=== PATIENT | female | born 2000 | race Caucasian/White ===

== ENCOUNTER 2024-02-25 11:55 | Outpatient (CLI) | payer BC, SELFPAY ==
--- NOTE | ~2024-02-25 | XR_ITS ---
EXAMINATION: XR cervical spine 4-5V DATE: 02/25/2024 12:12 INDICATION: Bilateral hand tingling and numbness. TECHNIQUE: 4 views of cervical spine were obtained. COMPARISON: None. FINDINGS: Bone alignment is normal. Vertebral body heights and intervertebral disc heights are normal . The facet joints are normal. No central canal stenosis or prevertebral soft tissue swelling. IMPRESSION: 1. Normal cervical spine. Reviewed, dictated and finalized at location A. IMPRESSION: 1. Normal cervical spine.
== END 2024-02-25 11:56 ==
PROVIDERS: PCP Physician Assistant Medical; Visit Provider Physician Assistant Medical
DX: R20.2 Paresthesia of skin (principal)
CPT/HCPCS: 72050

== ENCOUNTER 2024-04-01 09:29 | Outpatient (CLI) | payer BC, SELFPAY ==
--- NOTE | 2024-04-01 11:15 | NEURO_ITS ---
Impression: # Non-diabetic complains of numbness of hands. # Bilateral ulnar neuropathy across the elbows. # No Carpal Tunnel Syndrome. # Normal needle/EMG exam. Nerve Conduction Studies Anti Sensory Summary Table Stim Site NR Peak (ms) P-T Amp (?V) Site1 Site2 Delta-P (ms) Dist (cm) See (m/s) Left Median Anti Sensory (2-3nd Digit) Wrist 3.0 120.9 Wrist 2-3nd Digit 3.0 14.0 47 Wrist 3.2 153.8 Wrist 2-3nd Digit 3.0 14.0 47 Right Median Anti Sensory (2-3nd Digit) Wrist 2.9 159.9 Wrist 2-3nd Digit 2.9 14.0 48 Wrist 3.0 147.7 Wrist 2-3nd Digit 2.9 14.0 48 Left Radial Anti Sensory (Base 1st Digit) Wrist 2.0 67.5 Wrist Base 1st Digit 2.0 0.0 Right Radial Anti Sensory (Base 1st Digit) Wrist 2.4 50.8 Wrist Base 1st Digit 2.4 0.0 Left Ulnar Anti Sensory (5th Digit) Wrist 3.0 89.8 Wrist 5th Digit 3.0 14.0 47 Right Ulnar Anti Sensory (5th Digit) Wrist 2.7 123.6 Wrist 5th Digit 2.7 14.0 52 Motor Summary Table Stim Site NR Onset (ms) O-P Amp (mV) Site1 Site2 Delta-0 (ms) Dist (cm) See (m/s) Left Median Motor (Abd Poll Brev) Wrist 3.5 4.6 Elbow Wrist 5.1 30.0 59 Elbow 8.6 5.4 Right Median Motor (Abd Poll Brev) Wrist 3.0 8.2 Elbow Wrist 5.0 30.0 60 Elbow 8.0 7.7 Left Ulnar Motor (Abd Dig Minimi) Wrist 2.7 6.6 A Elbow Wrist 6.2 31.0 50 A Elbow 8.9 5.0 B Elbow Wrist 4.2 24.0 57 B Elbow 6.9 5.0 Right Ulnar Motor (Abd Dig Minimi) Wrist 2.8 11.7 A Elbow Wrist 5.5 29.0 53 A Elbow 8.3 11.2 B Elbow Wrist 3.5 22.0 63 B Elbow 6.3 8.4 F Wave Studies NR F-Lat (ms) L-R F-Lat (ms) Left Median (Mrkrs) (Abd Poll Brev) 28.64 0.00 Right Median (Mrkrs) (Abd Poll Brev) 28.64 0.00 Left Ulnar (Mrkrs) (Abd Dig Min) 28.69 0.12 Right Ulnar (Mrkrs) (Abd Dig Min) 28.57 0.12 EMG Side Muscle Nerve Root Ins Act Fibs Amp Dur Recrt Comment Right 1stDorInt Ulnar C8-T1 Nml Nml Nml Nml Nml Right Ext Indicis Radial (Post Int) C7-8 Nml Nml Nml Nml Nml Right Ext Digitorum Radial (Post Int) C7-8 Nml Nml Nml Nml Nml Right BrachioRad Radial C5-6 Nml Nml Nml Nml Nml Right PronatorTeres Median C6-7 Nml Nml Nml Nml Nml Right Abd Poll Brev Median C8-T1 Nml Nml Nml Nml Nml Right ABD Dig Min Ulnar C8-T1 Nml Nml Nml Nml Nml Left 1stDorInt Ulnar C8-T1 Nml Nml Nml Nml Nml Left Ext Indicis Radial (Post Int) C7-8 Nml Nml Nml Nml Nml Left Ext Digitorum Radial (Post Int) C7-8 Nml Nml Nml Nml Nml Left BrachioRad Radial C5-6 Nml Nml Nml Nml Nml Left PronatorTeres Median C6-7 Nml Nml Nml Nml Nml Left Abd Poll Brev Median C8-T1 Nml Nml Nml Nml Nml Left ABD Dig Min Ulnar C8-T1 Nml Nml Nml Nml Nml Right Biceps Musculocut C5-6 Nml Nml Nml Nml Nml Right Triceps Radial C6-7-8 Nml Nml Nml Nml Nml Right Deltoid Axillary C5-6 Nml Nml Nml Nml Nml Left Biceps Musculocut C5-6 Nml Nml Nml Nml Nml Left Triceps Radial C6-7-8 Nml Nml Nml Nml Nml Left Deltoid Axillary C5-6 Nml Nml Nml Nml Nml MTDD
== END 2024-04-01 09:30 | disposition home or self-care (01) ==
PROVIDERS: PCP Physician Assistant Medical; Visit Provider Physician Assistant Medical
DX: R20.2 Paresthesia of skin (principal); G56.23 Lesion of ulnar nerve, bilateral upper limbs
CPT/HCPCS: 95886; 95911

== ENCOUNTER 2024-06-16 10:55 | Emergency (ER) | payer BC, SELFPAY ==
[2024-06-16 11:09] VITALS: BP 97/74; PULSE 115; RESP 16; TEMP 36.8; O2SAT 99
--- NOTE | 2024-06-16 11:21 | ED.GENADULT ---
HPI - General Adult General Chief complaint: Headache Stated complaint: Dehydrated Time Seen by Provider: 06/16/24 11:21 Source: patient Mode of arrival: ambulatory Limitations: no limitations History of Present Illness HPI narrative: Tyra is a 24-year-old female with a history of POTS who presents to the clinic today with complaints of dehydration x2 days, stating she is having a POTS flare. She also reports feeling lethargic x 2 days and has spent most the day in bed, dark urine, urinary burning, and urinary frequency. She increased her fluid intake and has been drinking 8-10 glasses of water a day as well as Body Armors and Gatorade. She denies fevers/chills, shortness of breath, nausea/vomiting, or diarrhea. Related Data Home Medications Medication Instructions Recorded Confirmed norethindrone 1 mg-ethinyl 1 tablet PO DAILY 06/16/24 06/16/24 estradiol 20 mcg (21)-iron 75 mg (7) tablet (12/08 (28)) Allergies Allergy/AdvReac Type Severity Reaction Status Date / Time No Known Allergies Allergy Verified 06/16/24 11:04 Review of Systems Review of Systems: CONSTITUTIONAL: Denies body aches, fever, chills, or sweats. EYES: Denies visual changes, redness, or discharge. ENT: Denies rhinorrhea, congestion, sore throat, or otalgia. CARDIOVASCULAR: Denies chest pain or edema. RESPIRATORY: Denies cough or dyspnea. GASTROINTESTINAL: Denies abdominal pain, nausea, vomiting, or diarrhea. GENITOURINARY: Reports urinary burning and frequency; Denies hematuria. SKIN: Denies rash, itching, or wounds. MUSCULOSKELETAL: Denies back pain, joint pain, or myalgia. NEUROLOGIC: Reports dizziness when standing; Denies headache, numbness, tingling, or weakness. PSYCH: Denies depression or anxiety. All systems reviewed & are unremarkable except as noted in HPI and below PMFSH Past Medical History Medical History POTS (postural orthostatic tachycardia syndrome) Scoliosis Surgical History Surgical History History of spinal fusion for scoliosis 04/07/15-posterior spinal fusion History of wisdom tooth extraction Social History Social History Smoking status: Never smoker Alcohol intake: never Substance use: never Do You Feel Safe in your Home?: Yes Lack of Transportation: No Lack of Food: Never True Current Housing: I Have Housing Concerned About Future Housing: No Difficulty Paying Gas/Electric Bills: No Difficulty Paying for Meds: No Currently Unemployed: No Education: Associate Degree Difficulty w/ Childcare or Family Care: No Living arrangements: with family Occupation/Education: occupation Gender identity (if verbalized by the patient): Female Comments At time of signature, I have reviewed and agree with nursing past medical, surgical, social and family history unless otherwise noted. Please see nursing chart for further information. There is no relevant family history pertinent to the presenting complaint Exam Narrative: GENERAL: Well-appearing, well-nourished, and in no acute distress. EYES: EOMI. No redness or drainage. Conjunctivae normal. ENT: Mucous membranes pink and moist. No rhinorrhea. Throat normal. Uvula midline. NECK: Normal AROM. Supple. CHEST: No respiratory distress. Clear to auscultation. HEART: Tachy and normal rhythm. No murmur appreciated. ABDOMEN: Soft, nontender, nondistended, normal active bowel sounds. No CVA tenderness SKIN: Warm, dry, no rash. Capillary refill normal. Normal skin turgor. NEURO: No focal deficits. Alert and oriented x3. Gait steady. PSYCH: Normal affect. Course Course Emergency Course: Patient is aware of diagnosis, understands and agrees to treatment plan. Anticipatory guidance given. Patient agrees to follow-up as directed and is aware of reason
[2024-06-16 11:41] LABS: EDUAAPPEAR Clear; EDUABILI Negative; EDUABLOOD Trace; EDUACOLOR1 Yellow; EDUAGLUCOSE Negative; EDUAKETONE 1+; EDUALEUKO Negative; EDUANITRATE Negative; EDUAPH 5.5; EDUAPROTEIN 1+; EDUAUROBILI 0.2
== END 2024-06-16 12:03 | disposition home or self-care (01) ==
PROVIDERS: Emergency Provider Nurse Practitioner Family; PCP Physician Assistant Medical
DX: R42 Dizziness and giddiness (principal); G90.A Postural orthostatic tachycardia syndrome [POTS]; M41.9 Scoliosis, unspecified
CPT/HCPCS: 81003; 87086; 87088; 99213; G0463

== ENCOUNTER 2024-06-30 03:18 | Day surgery (SDC) | payer BC, SELFPAY ==
--- NOTE | 2024-06-25 09:40 | SUR.PREOP ---
Report to the Outpatient Waiting Room, entrance under the green pavilion located off [address], at time 1000 on date 06/30/24. Planned Procedure Time: 1200. Time changes happen often and if your time is changed the preop area will call you the afternoon before. - You and your visitor will be asked to self-screen and do not enter if you have any COVID symptoms. - A mask is optional within the hospital at this time. Patients may have clear liquids (water, carbonated beverages, clear teas, apple juice) until 3 hours prior to surgery with a maximum of 20 ounces. - NO CLEAR LIQUIDS AFTER 0900 - No food from midnight until time of surgery - Infants may have breast milk until 4 hours before surgery, formula 6 hours prior to surgery. - Children will be allowed to drink immediately following surgery. If applicable, please bring a bottle or sippy cup to assist with drinking. Juice, water, soda, and popsicles are readily available. For infants on formula, please bring formula the day of surgery. Pacifiers are allowed. Take the following medications with a SIP of water the morning of surgery: N/A DO NOT STOP ANY OF YOUR OTHER PRESCRIPTION MEDICATIONS PRIOR TO SURGERY ?EXCEPT THE FOLLOWING Medications to discontinue per physician N/A Date to take last dose Please no make-up, nail yakut, hairspray, perfume, deodorant, or body powder the day of surgery. No jewelry (including any body piercings) or valuables the day of surgery, leave them at home. Please take a shower or bath the night before, or the morning of, surgery with an antibacterial soap. Wear comfortable, loose fitting clothing. Children are encouraged to wear pajamas. - Jewelry must be removed prior to entering the operating room. Rings and piercings that are not removed may be cut off. - The hospital will not accept responsibility for valuables. - Please leave all valuables, including medications, at home the day of surgery. If you are going home after surgery, a licensed show horse driver must drive you home. - NO public transportation without another adult if you receive anesthesia. - We recommend that an adult stay with you for 24 hours following discharge. - We also recommend that you do not drive, make important decision, drink alcoholic beverages, or take any drugs that were not prescribed by your health care provider for at least 24 hours after your discharge time. For Pediatric surgeries, we recommend two adults accompany the child home. Follow any additional instructions given to you from your surgeon. If you or anyone in your household have experienced Covid symptoms in the past week, please notify your surgeon or the nurse liaison at the phone number below for possible testing. Telephone instructions given to ARELY ZULETA and asked if any additional questions and then verbalized understanding. Patient advised to call surgeon office or pre surgery nurse liaison [phone] if any additional questions.
[2024-06-25 09:50] VITALS: BMI 18.6
[2024-06-30] MEDS: ACETAMINOPHEN 500 MG TABLET 1000 MG PO (10:24)
[2024-06-30] MEDS: LACTATED RINGERS 1,000 ML 30 ML IV CONT ×2 (10:30→13:30)
[2024-06-30 10:46] VITALS: BP 114/61; PULSE 94; RESP 16; TEMP 36.3; O2SAT 100
[2024-06-30] MEDS: KETOROLAC 15 MG/ML VIAL (*BKC) IV PUSH (11:04)
--- NOTE | 2024-06-30 11:11 | P.PNAN_ITS ---
Anes - Initial Pre Proc Eval Procedure: Operation Date: 06/30/24 12:00 Proposed Procedures p Left Elbow Ulnar Nerve Transposition - Yasmany Solano MD Date/Time: 06/30/24 11:11 Surgeon: Yasmany Solano MD Pre Op Diagnosis: Lt Elbow Ulnar Neuropathy Patient Data Age: 24 Gender: F Height: 1.78 m Weight: 58.1 kg Last Vital Signs Temp 97.4 F L 06/30/24 10:46 Pulse 94 06/30/24 10:46 Resp 16 06/30/24 10:46 BP 114/61 06/30/24 10:46 Pulse Ox 100 06/30/24 10:46 O2 Del Method Room Air 06/30/24 10:46 Allergies Allergy/AdvReac Type Severity Reaction Status Date / Time No Known Allergies Allergy Verified 06/30/24 10:12 Home Medications Medication Instructions Recorded Confirmed Type norethindrone 1 mg-ethinyl 1 tablet PO HS 06/16/24 06/30/24 History estradiol 20 mcg (21)-iron 75 mg (7) tablet (Junel FE 12/08 (28)) Patient hx anesthesia problems: none and other (Pt and her mother report low BPs post op secondary to POTS. ) Family hx anesthesia problems: none Results Review: All pre-operative results and documents have been reviewed as part of the pre- operative evaluation. [facility] Past Medical History Medical History POTS (postural orthostatic tachycardia syndrome) Scoliosis Surgical History Surgical History History of spinal fusion for scoliosis 04/07/15-posterior spinal fusion History of wisdom tooth extraction Social History Social History Smoking status: Never smoker Alcohol intake: never Substance use: never Do You Feel Safe in your Home?: Yes Lack of Transportation: No Lack of Food: Never True Current Housing: I Have Housing Concerned About Future Housing: No Difficulty Paying Gas/Electric Bills: No Difficulty Paying for Meds: No Currently Unemployed: No Education: Associate Degree Difficulty w/ Childcare or Family Care: No Living arrangements: with family Occupation/Education: occupation Gender identity (if verbalized by the patient): Female Spiritual care concerns: No Anes - Eval Final PreProcedure Day of Procedure 06/30/24 11:11 Patient weight: normal Heart: regular rate and rhythm Lungs: clear to auscultation Airway: Mallampati scale Neurological: alert and oriented Last oral intake: >/= 8 hours ASA classification: II Emergent: no Anesthetic plan: proceed Anesthesia type and monitoring: general LMA and standard monitoring Results Review: All pre-operative results and documents have been reviewed as part of the pre- operative evaluation. Pt w POTS, typically has lower BPs, danial post anethesia care. Informed Consent: The patient's anesthetic plan and its attendant risks and benefits were discussed with the patient/family/POA. Questions were solicited and answers provided to the satisfaction of the patient/family/POA.
--- NOTE | 2024-06-30 11:54 | WPDHPUPDATE1 ---
History and Physical Update Update Date/Time: 06/30/24 11:54 History and Physical has been reviewed, including an updated exam of the patient. There are NO changes in the patient's condition. Risks, benefits, and alternatives have been discussed and questions answered. Patient agrees to proceed with procedure.
[2024-06-30] MEDS: ceFAZolin 2 GM/D5W 50 ML 2 GM/50 ML BAG IVPB (12:07)
[2024-06-30] MEDS: BUPIVACAINE/EPINEPHRINE 0.5% 10 ML VIAL 20 ML INFILTRATE (12:24)
[2024-06-30 13:30] VITALS: BP 87/46; PULSE 62; RESP 14; O2SAT 100
[2024-06-30 14:00] VITALS: BP 90/79; PULSE 66
--- NOTE | 2024-06-30 14:06 | P.OP_ITS ---
Procedure Note - Detailed Date of Procedure 06/30/24 Pre-op Diagnosis Lt Elbow Ulnar Neuropathy Post-op Diagnosis Same Procedure Performed Left ulnar nerve subcutaneous anterior transposition. 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 Findings Significant displacement of the nerve from the cubital tunnel observed. Anterior transposition was performed. Description of Procedure A general anesthetic was administered. Preoperative antibiotics were given. The arm was prepped and draped in usual sterile fashion with a well-padded tourniquet high on the arm. The limb was exsanguinated and tourniquet inflated to 250 mmHg. The proposed incision was injected with 0.5% Marcaine with epinephrine. A longitudinal incision was created posterior to the medial epicondyle. Careful dissection was brought down to the ulnar nerve. It was identified proximally and dissected to the cubital tunnel retinaculum. Careful dissection released the cubital tunnel retinaculum. The dissection was carried out to the flexor carpi ulnaris. The 1st motor branch was carefully identified and protected. Attention was turned proximally, and the nerve was released proximal to the arcade of [place]. The intermuscular septum was slightly excised at the medial epicondyle. Careful cauterization with bipolar electrocautery was performed. The arm was flexed and the nerve was assessed. At this point the nerve was confirmed to be unstable. It was elected to proceed with a subcutaneous transposition. After adequate release was confirmed pr oximally and distally, the nerve was carefully moved onto the muscle. The course of the nerve was very nice without evidence of compression or instability. A subcutaneous tissue sling was created with 0 Vicryl suture reapproximating the subcutaneous fat layer to the medial epicondyle. The nerve remained stable through full range of motion. The tourniquet was released and meticulous hemostasis was maintained. The subcutaneous tissues were closed with interrupted 3-0 Monocryl suture followed by running 4-0 Monocryl suture and Steri-Strips. Sterile dressing was applied with a soft splint applied. The patient was extubated and brought to the recovery room in stable condition. Estimated Blood Loss 1 Pathology None sent Complications No immediate complications Condition Stable Disposition PACU [facility] Billing Surgery - Charge Forward: Surgery Billing
[2024-06-30 14:30] VITALS: BP 91/58; PULSE 59
[2024-06-30 14:45] VITALS: BP 81/48; PULSE 73
== END 2024-06-30 15:05 | disposition home or self-care (01) ==
PROVIDERS: PCP Physician Assistant Medical; Visit Provider Orthopaedic Surgery
PROC: (CPT 64718; principal; 2024-06-30 12:00)
DX: G56.22 Lesion of ulnar nerve, left upper limb (principal); G90.A Postural orthostatic tachycardia syndrome [POTS]; M41.9 Scoliosis, unspecified; Z98.890 Other specified postprocedural states; Z98.1 Arthrodesis status
CPT/HCPCS: 64718; A4565; A9270; J0690; J1885; J2250; J2704; J3010; J7120

== ENCOUNTER 2024-07-15 02:03 | Day surgery (SDC) | payer BC, SELFPAY ==
[2024-07-08 15:57] VITALS: BMI 19.2
--- NOTE | 2024-07-08 16:02 | SUR.PREOP ---
Report to the Outpatient Waiting Room, entrance under the green pavilion located off [facility], at time 11:30 on date 07/15/2024. Planned Procedure Time: 1:30p.m. Time changes happen often and if your time is changed the preop area will call you the afternoon before. - You and your visitor will be asked to self-screen and do not enter if you have any COVID symptoms. - A mask is optional within the hospital at this time. Patients may have clear liquids (water, carbonated beverages, clear teas, apple juice) until 3 hours prior to surgery with a maximum of 20 ounces. - No food from midnight until time of surgery - Infants may have breast milk until 4 hours before surgery, infant formula 6 hours prior to surgery. - Children will be allowed to drink immediately following surgery. If applicable, please bring a bottle or sippy cup to assist with drinking. Juice, water, soda, and popsicles are readily available. For infants on formula, please bring formula the day of surgery. Pacifiers are allowed. Take the following medications with a SIP of water the morning of surgery: N/A DO NOT STOP ANY OF YOUR OTHER PRESCRIPTION MEDICATIONS PRIOR TO SURGERY ?EXCEPT THE FOLLOWING Medications to discontinue per physician N/A Date to take last dose N/A Please no make-up, nail nepali, hairspray, perfume, deodorant, or body powder the day of surgery. No jewelry (including any body piercings) or valuables the day of surgery, leave them at home. Please take a shower or bath the night before, or the morning of, surgery with an antibacterial soap. Wear comfortable, loose fitting clothing. Children are encouraged to wear pajamas. - Jewelry must be removed prior to entering the operating room. Rings and piercings that are not removed may be cut off. - The hospital will not accept responsibility for valuables. - Please leave all valuables, including medications, at home the day of surgery. If you are going home after surgery, a licensed driver lifter of sanitation truck must drive you home. - NO public transportation without another adult if you receive anesthesia. - We recommend that an adult stay with you for 24 hours following discharge. - We also recommend that you do not drive, make important decision, drink alcoholic beverages, or take any drugs that were not prescribed by your health care provider for at least 24 hours after your discharge time. For Pediatric surgeries, we recommend two adults accompany the child home. Follow any additional instructions given to you from your surgeon. If you or anyone in your household have experienced Covid symptoms in the past week, please notify your surgeon or the nurse liaison at the phone number below for possible testing. Telephone instructions given to Tyra Sanders and asked if any additional questions and then verbalized understanding. Patient advised to call surgeon office or pre surgery nurse liaison [phone] if any additional questions.
[2024-07-15] VITALS (8 sets, daily range): BP systolic 86–105; BP diastolic 55–70; PULSE 62–97; RESP 9–18; TEMP 36.2–36.6; O2SAT 100
--- NOTE | 2024-07-15 09:57 | WPDHPUPDATE1 ---
History and Physical Update Update Date/Time: 07/15/24 09:57 History and Physical has been reviewed, including an updated exam of the patient. There are NO changes in the patient's condition. Risks, benefits, and alternatives have been discussed and questions answered. Patient agrees to proceed with procedure.
[2024-07-15] MEDS: ACETAMINOPHEN 500 MG TABLET 1000 MG PO (12:13)
--- NOTE | 2024-07-15 12:27 | WPDANESEPPF ---
Anes - Initial Pre Proc Eval Procedure: Operation Date: 07/15/24 13:30 Proposed Procedures p Right Ulnar Nerve Transposition - Yasmany Solano MD Date/Time: 07/15/24 12:27 Surgeon: Yasmany Solano MD Pre Op Diagnosis: Rt Elbow Ulnar Neuropathy Patient Data Age: 24 Gender: F Height: 1.75 m Weight: 58.97 kg Allergies Allergy/AdvReac Type Severity Reaction Status Date / Time No Known Allergies Allergy Verified 07/15/24 11:42 Home Medications Medication Instructions Recorded Confirmed Type norethindrone 1 mg-ethinyl 1 tablet PO HS 06/16/24 07/15/24 History estradiol 20 mcg (21)-iron 75 mg (7) tablet (June FE 12/08 (28)) oxycodone-acetaminophen 5 mg-325 1 - 2 tablet PO Q4-6H PRN pain #30 07/15/24 Rx mg tablet tabs Patient hx anesthesia problems: none Family hx anesthesia problems: none Results Review: All pre-operative results and documents have been reviewed as part of the pre-operative evaluation. [facility] Past Medical History Medical History POTS (postural orthostatic tachycardia syndrome) Scoliosis Surgical History Surgical History History of spinal fusion for scoliosis 04/07/15-posterior spinal fusion History of wisdom tooth extraction Social History Social History Smoking status: Never smoker Alcohol intake: never Substance use: never Do You Feel Safe in your Home?: Yes Lack of Transportation: No Lack of Food: Never True Current Housing: I Have Housing Concerned About Future Housing: No Difficulty Paying Gas/Electric Bills: No Difficulty Paying for Meds: No Currently Unemployed: No Education: Associate Degree Difficulty w/ Childcare or Family Care: No Living arrangements: with family Occupation/Education: occupation Gender identity (if verbalized by the patient): Female Spiritual care concerns: No Anes - Eval Final PreProcedure Day of Procedure 07/15/24 12:27 Patient weight: normal and thin Heart: regular rate and rhythm Lungs: clear to auscultation Airway: Mallampati scale class II Neurological: alert and oriented Last oral intake: >/= 8 hours ASA classification: II Emergent: no Anesthetic plan: proceed Anesthesia type and monitoring: general LMA and standard monitoring Results Review: All pre-operative results and documents have been reviewed as part of the pre-operative evaluation. POTS by rosalina. Informed Consent: The patient's anesthetic plan and its attendant risks and benefits were discussed with the patient/family/POA. Questions were solicited and answers provided to the satisfaction of the patient/family/POA.
[2024-07-15] MEDS: LACTATED RINGERS 1,000 ML 30 ML IV CONT ×2 (12:55→14:30)
[2024-07-15] MEDS: KETOROLAC 15 MG/ML VIAL (*BKC) IV PUSH (13:04)
[2024-07-15] MEDS: ceFAZolin 2 GM/D5W 50 ML 2 GM/50 ML BAG IVPB (13:08)
[2024-07-15] MEDS: BUPIVACAINE/EPINEPHRINE 0.5% 10 ML VIAL 20 ML INFILTRATE (13:08)
--- NOTE | 2024-07-15 14:35 | W.PM.PROC2 ---
Procedure Note - Detailed Date of Procedure 07/15/24 Pre-op Diagnosis Rt Elbow Ulnar Neuropathy Post-op Diagnosis Same Procedure Performed Right ulnar nerve subcutaneous anterior transposition. Surgeon Yasmany Solano MD Chiropractic Neurologist Larissa Cartagena RN-FA Anesthesia General Indications Cubital tunnel syndrome with nerve instability Findings Ulnar nerve instability apparent early during the exposure and examination under anesthesia. Description of Procedure A general anesthetic was administered. Preoperative antibiotics were given. The arm was prepped and draped in usual sterile fashion with a well-padded tourniquet high on the arm. The limb was exsanguinated and tourniquet inflated to 225 mmHg. The proposed incision was injected with 0.5% Marcaine with epinephrine. A longitudinal incision was created posterior to the medial epicondyle. Careful dissection was brought down to the ulnar nerve. It was identified proximally and dissected to the cubital tunnel retinaculum. Careful dissection released the cubital tunnel retinaculum. The dissection was carried out to the flexor carpi ulnaris. The 1st motor branch was carefully identified and protected. Attention was turned proximally, and the nerve was released proximal to the arcade of [place]. The intermuscular septum was slightly excised at the medial epicondyle. Careful cauterization with bipolar electrocautery was performed. The arm was flexed and the nerve was assessed. At this point the nerve was confirmed to be unstable. It was elected to proceed with a subcutaneous transposition. After adequate release was confirmed proximally and distally, the nerve was carefully moved onto the muscle. The course of the nerve was very nice without evidence of compression or instability. A subcutaneous tissue sling was created with 0 Vicryl suture reapproximating the subcutaneous fat layer to the medial epicondyle. The nerve remained stable through full range of motion. The tourniquet was released and meticulous hemostasis was maintained. The subcutaneous tissues were closed with interrupted 3-0 Monocryl suture followed by running 4-0 Monocryl suture and Steri-Strips. Sterile dressing was applied with a soft splint applied. The patient was extubated and brought to the recovery room in stable condition. Estimated Blood Loss 2 Pathology None sent Complications No immediate complications Condition Stable Disposition PACU [facility] Billing Surgery - Charge Forward: Surgery Billing
== END 2024-07-15 16:22 | disposition home or self-care (01) ==
PROVIDERS: PCP Physician Assistant Medical; Visit Provider Orthopaedic Surgery
PROC: (CPT 64718; principal; 2024-07-15 13:30)
DX: G56.21 Lesion of ulnar nerve, right upper limb (principal); M41.9 Scoliosis, unspecified
CPT/HCPCS: 64718; A4565; A9270; J0690; J1100; J1170; J1200; J1885; J2250; J2371; J2405; J2704; J3010; J7120